=== PATIENT | female | born 1985 | race Caucasian/White ===

== ENCOUNTER → 2023-05-08 16:00 | Outpatient (REF) | payer OTHER, SELFPAY | LOC: RAD 16:00 | PROVIDERS: ATTENDING PHYSICIAN Obstetrics & Gynecology; FAMILY PHYSICIAN Family Medicine | DX: N92.0 Excessive and frequent menstruation with regular cycle (principal) | CPT/HCPCS: 76830; 76856 ==

== ENCOUNTER 2024-03-26 06:51 | Day surgery (SDC) | payer OTHER, SELFPAY ==
[2024-03-22 11:03] LABS: % Basophils 0.7 % (0-2); % Immature Granulocytes 0.5 % (0-0.5); % Lymphocytes 34.8 % (20.5-51.1); % Monocytes 7.1 % (1.7-9.3); % Neutrophils 55.9 % (42.2-75.2); Absolute Basophils 0.1 10^3/uL (0-0.2); Absolute Eosinophils 0.1 10^3/uL (0-0.7); Absolute Immature Granulocytes 0.1 10^3/uL (0-0.05); Absolute Lymphocytes 3.6 10^3/uL (1.2-3.4); Absolute Monocytes 0.7 10^3/uL (0.1-0.6); Absolute Neutrophils 5.8 10^3/uL (1.4-6.5); Hematocrit 47.5 % (37.0-47.0); Mean Corp Hgb Conc. 33.7 g/dL (33.0-37.0); Mean Corpuscular Hgb 28.7 pg (27.0-31.0); Mean Corpuscular Volume 85.3 fL (81.0-99.0); Mean Platelet Volume 9.8 fL (7.4-10.4); Nucleated Red Blood Cells % 0 %; Platelet Count 329 10^3/uL (130-400); Red Blood Cell Count 5.57 10^6/uL (4.20-5.40); Red Cell Dist. Width 13.7 % (11.5-14.5); White Blood Cell Count 10.4 10^3/uL (4.8-10.8)
[2024-03-22 11:37] LABS: Blood Urea Nitrogen 15 mg/dl (7-17); Calcium 9.5 mg/dl (8.4-10.2); Carbon Dioxide 24 mmol/L (22-30); Chloride 103 mmol/L (98-107); Glucose 106 mg/dl (70-99); Potassium 4.5 mmol/L (3.5-5.1); Sodium 138 mmol/L (135-145); eGFR > 60.00
[2024-03-22 11:52] LABS: Beta HCG Quantitative < 2.39 mIU/ml
[2024-03-22 13:18] VITALS: BMI 34.7
[2024-03-26] VITALS (7 sets, daily range): BP systolic 108–119; BP diastolic 69–79; BMI 34.7
[2024-03-26] MEDS: TYLENOL 1000 MG PO (07:48)
[2024-03-26] MEDS: NEURONTIN 100 MG PO (07:48)
[2024-03-26] MEDS: DEMEROL 12.5 MG IV (09:58)
[2024-03-26] MEDS: ROXICODONE 5 MG PO (10:45)
== END 2024-03-26 11:40 | disposition home or self-care (01) ==
LOC: SDS 06:51
PROVIDERS: ATTENDING PHYSICIAN Obstetrics & Gynecology; FAMILY PHYSICIAN Family Medicine
DX: N87.0 Mild cervical dysplasia (principal); N92.0 Excessive and frequent menstruation with regular cycle
CPT/HCPCS: 58558; 88305; 88307; 36415; 80048; 84702; 85025; 86850; 86900; 86901; 88341; 88342

== ENCOUNTER → 2024-04-08 10:43 | Outpatient (REF) | payer OTHER, SELFPAY ==
[2024-04-08 15:04] LABS: Varicella Zoster IgG (VZV) Positive
[2024-04-08 18:38] LABS: Hepatitis B Surface Antibody Positive
[2024-04-10 08:07] LABS: Quantiferon Mitogen minus NIL 9.92 IU/mL; Quantiferon NIL 0.08 IU/mL; Quantiferon Plus TB1 minus NIL 0.01 IU/mL (<=0.34); Quantiferon TB Gold Plus Negative (Negative)
== END ==
LOC: OHS 10:43
PROVIDERS: ATTENDING PHYSICIAN Nurse Practitioner Family
DX: Z23 Encounter for immunization (principal)
CPT/HCPCS: 36415; 86480; 86706; 86787

== ENCOUNTER 2024-08-30 06:18 | Day surgery (SDC) | payer BC, OTHER, SELFPAY ==
[2024-08-23 09:48] LABS: % Basophils 0.5 % (0-2); % Eosinophils 1.2 % (0-6); % Immature Granulocytes 0.4 % (0-0.5); % Lymphocytes 31.9 % (20.5-51.1); % Monocytes 8.3 % (1.7-9.3); % Neutrophils 57.7 % (42.2-75.2); Absolute Basophils 0.1 10^3/uL (0-0.2); Absolute Eosinophils 0.1 10^3/uL (0-0.7); Absolute Lymphocytes 3.4 10^3/uL (1.2-3.4); Absolute Monocytes 0.9 10^3/uL (0.1-0.6); Absolute Neutrophils 6.1 10^3/uL (1.4-6.5); Hematocrit 42.5 % (37.0-47.0); Hemoglobin 14.2 g/dL (12.0-16.0); Mean Corp Hgb Conc. 33.4 g/dL (33.0-37.0); Mean Corpuscular Hgb 28.1 pg (27.0-31.0); Mean Platelet Volume 9.9 fL (7.4-10.4); Nucleated Red Blood Cells % 0 %; Platelet Count 298 10^3/uL (130-400); Red Blood Cell Count 5.06 10^6/uL (4.20-5.40); Red Cell Dist. Width 14.5 % (11.5-14.5); White Blood Cell Count 10.6 10^3/uL (4.8-10.8)
[2024-08-23 11:45] LABS: Beta HCG Quantitative < 2.39 mIU/ml
[2024-08-23 12:13] LABS: Blood Urea Nitrogen 12 mg/dl (7-17); Calcium 9.1 mg/dl (8.4-10.2); Carbon Dioxide 22 mmol/L (22-30); Chloride 112 mmol/L (98-107); Glucose 100 mg/dl (70-99); Potassium 4.6 mmol/L (3.5-5.1); Sodium 141 mmol/L (135-145); eGFR > 60.00
[2024-08-30] VITALS (11 sets, daily range): BP systolic 107–123; BP diastolic 47–86; BMI 37.5
[2024-08-30] MEDS: TYLENOL 1000 MG PO (09:21)
[2024-08-30] MEDS: NEURONTIN 300 MG PO (09:21)
[2024-08-30] MEDS: NORMOSOL-R/PLASMALYTE-A 1000 IV (09:35)
[2024-08-30] MEDS: HEPARIN 5000 UNITS SC (09:44)
--- NOTE | 2024-08-30 13:15 | W.IMMPOSTOP ---
Addendum entered and electronically signed by Natty Alvarez DO 08/30/24 18:53:
Omental adhesion noted to anterior abdominal wall noted several cm below umbilical port site. These were lysed at start of case with robotic instruments.
Procedure: add lysis adhesions
Original Note:
Surgical Immed Post Op Note
-
Primary Surgeon: Natty Alvarez Do
City Editor: Beulah Vega PA-C
Pre-op Diagnosis: Menorrhagia
Post-op Diagnosis: same; endometriosis right ovary and cul de sac peritoneum
Procedure Performed: RA TLH b/l partial salpingectomy (removing remainder of tubes); fulgeration endometriosis
Anesthesia Type: general ET Dr. Marks
Specimen / Cultures: uterus, cervix and remainder of attached portions of fallopian tubes
Estimated Blood Loss: 20mL
Urine output 300ml clear yellow
Complications: none
Operative Findings: Uterus sounded to 9 cm; globular shape. Proximal portions of fallopian tubes noted lineworker to uterine cornua bilaterally. Normal appearing left ovary. right ovary normal size with superficial endometriosis implants (fulgerated).
Fragment of fimbria and paratubal cyst removed from left ovary/adnexa.
Counts correct times 2.
Stable to recovery room.
[2024-08-30] MEDS: DILAUDID 0.5 MG IV ×2 (13:19→13:50)
[2024-08-30] MEDS: TYLENOL 650 MG PO (15:51)
[2024-08-30] MEDS: ROXICODONE 5 MG PO (15:51)
== END 2024-08-30 16:40 | disposition home or self-care (01) ==
LOC: SDS 06:18
PROVIDERS: ATTENDING PHYSICIAN Obstetrics & Gynecology; FAMILY PHYSICIAN Student in an Organized Health Care Education/Training Program
DX: N80.00 Endometriosis of the uterus, unspecified (principal); N80.101 Endometriosis of right ovary, unspecified depth; N83.8 Other noninflammatory disorders of ovary, fallopian tube and broad ligament; N92.0 Excessive and frequent menstruation with regular cycle; K66.0 Peritoneal adhesions (postprocedural) (postinfection)
CPT/HCPCS: 58571; 88307; 36415; 80048; 84702; 85025; 86850; 86900; 86901

== ENCOUNTER → 2024-10-29 22:31 | Outpatient (REF) | payer OTHER, SELFPAY ==
[2024-10-29 23:38] LABS: Hematocrit 44.7 % (37.0-47.0); Hemoglobin 15.1 g/dL (12.0-16.0); Mean Corp Hgb Conc. 33.8 g/dL (33.0-37.0); Mean Corpuscular Volume 83.6 fL (81.0-99.0); Platelet Count 295 10^3/uL (130-400); Red Cell Dist. Width 14.2 % (11.5-14.5)
[2024-10-30 00:08] LABS: ALT (SGPT) 22 U/L (0-35); AST (SGOT) 19 U/L (14-36); Albumin 4.4 g/dl (3.5-5.0); Alkaline Phosphatase 102 U/L (38-126); Blood Urea Nitrogen 11 mg/dl (7-17); Calcium 9.4 mg/dl (8.4-10.2); Carbon Dioxide 28 mmol/L (22-30); Chloride 107 mmol/L (98-107); Glucose 89 mg/dl (70-99); Iron 79 ug/dl (37-170); Potassium 4.2 mmol/L (3.5-5.1); Sodium 141 mmol/L (135-145); Total Protein 7.4 g/dl (6.3-8.2); eGFR > 60.00
[2024-10-30 00:18] LABS: Total Iron Binding Capacity 422 ug/dl (265-497)
[2024-10-30 00:24] LABS: FSH 9.9 mIU/ml
[2024-10-30 00:45] LABS: Ferritin 13.0 ng/ml (6.24-137)
[2024-10-30 02:38] LABS: Folate 3.6 ng/ml (2.76-20); Vitamin B12 367 pg/ml (239-931)
[2024-11-03 18:20] LABS: Estradiol, Free 3.3 pg/mL
== END ==
LOC: CLAB 22:31
PROVIDERS: ATTENDING PHYSICIAN Obstetrics & Gynecology; FAMILY PHYSICIAN Family Medicine
DX: R53.82 Chronic fatigue, unspecified (principal)
CPT/HCPCS: 80053; 82607; 82681; 82728; 82746; 83001; 83002; 83540; 83550; 84403; 84443; 85027